=== PATIENT | male | born 1940 | race Caucasian/White ===

== ENCOUNTER 2016-04-20 14:59 | Outpatient (CLI) | payer MEDICARE, OTHER ==
[~2016-04-20] VITALS: Ht 185.4 cm; Wt 85.0 kg
--- NOTE | ~2016-04-20 | HEMODYNAMI ---
PATIENT:KATHIE KAPOOR MEDICAL RECORD: [id number] : 38 [id number] ADMISSION DATE: 04/20/16 Generatedon:04/21/201610:11 Patient name: KATHIE KAPOOR Patient #: [id number] SSN: DO B: 1940 Date of study: 04/21/2016 Page: Of Hemodynamic Procedure Report Patient Data Patient Demographics Procedure consent was obtained First Name: KATHIE Gender: Male Last Name: EMELIA : 1940 [facility] Initial: KEMI Age: 75 year(s) Patient #: [id number] Race: Unknown Additional ID: [id number] Contact details [address]: [address] [place] [address] State: [place] City: [place] Zip code: [address] Past Medical History Allergies Allergen Reaction Date Comments Reported Penicillins 04/21/2016 Admission Admission Data Admission Date: 04/20/2016 Admission Time: 17:25 Admit Source: Emergency Insurance Payor: Medicare, department Private health insurance Room #: D.2124 Weight (lbs.): 187.39 Weight (kg.): 85 Lab Results Lab Result Date: 04/21/2016 Lab Result Time: 0:00 Biochemistry Name Units Result Min Max BUN mg/dl 18 --(---*)-- 7 18 Creatinine mg/dl 1.1 --(--*-)-- 0.6 1.3 CBC Name Units Result Min Max Hemoglobin g/dl 11.6 *-(----)-- 13.5 17.5 Procedure Procedure Types Cath Procedure Diagnostic Procedure LHC LHC w/Coronaries PCI Procedure Coronary Stent Initial Miscellaneous Procedures Moderate Sedation up to 45 minutes Procedure Description Procedure Date Procedure Date: 04/21/2016 Procedure Start Time: 9:26 Procedure End Time: 9:51 Procedure Staff Name Function George Macedo RT Scrub Kinsey Silvestre RN Nurse Ever Gama MD Performing Physician Osvaldo Nielsen RT Monitor Procedure Data Cath Procedure Fluoroscopy Diagnostic fluoroscopy Total fluoroscopy Time: 5.9 time: 5.9 min min Diagnostic fluoroscopy Total fluoroscopy dose: 989 dose: 989 mGy mGy Contrast Material Contrast Material Type Amount (ml) Isovue 300 159 Entry Location Entry Primary Successful Side Size Upsize 1 Upsize Entry Closure Chung ccessful Closure Location (Fr) (Fr) 2 (Fr) Remarks Device Remarks Femoral Right 5 Fr 6 Fr 6 Fr Exoseal artery Mid-Length Short Diagnostic catheters Device Type Used For End Catheter Placement Cordis 5Fr JL 4.0 Procedure Catheter (MP) Cordis 5Fr 3DRC Catheter Procedure (MP) Cordis 5Fr Pigtail Procedure Catheter (MP) Procedure Complications No complications Procedure Medications Medication Administration Route Dosage Oxygen NC 2 l/min Benadryl I.V. 50 mg Lidocaine 2% added to field 20 Heparin Flush Bag added to field 2 bags (1000units/500ml NS) 0.9% NaCl I.V. 100 ml/hr Versed I.V. 1 mg Fentanyl I.V. 50 mcg Versed I.V. 1 mg Fentanyl I.V. 50 mcg Fentanyl I.V. 25 mcg Heparin Bolus I.V. 8500 units Plavix P.O. 600 mg Hemodynamics Rest HGB: 11.6 (g/dl) Heart Rate: 107 (bpm) Pressure Samples Time Site Value (mmHg) Purpose Heart Use Rate(bpm) 9:36 LV 151/16,25 Snapshot 110 9:37 LV 150/20,23 Snapshot 104 9:37 LV 144/13,19 Snapshot 101 9:37 AO 151/97(124) Pullback 106 Gradients Valve Time Site Site 2 Mean SEP/DFP Peak To Heart Use 1 (mmHg) (sec/min) Peak Rate (mmHg) (bpm) Aortic 9:37 LV AO 5 5 106 151/97(124) Calculations Valve P-P Mean Valve Index Valve Source Name Gradient Area Flow (cm2) Aortic 5 5 Snapshots Pre Cath Intra NCS Post Cath Vital Signs Time Heart Resp SPO2 NIBP (mmHg) Rhythm Pain Sedation Rate (ipm) (%) Status Level (bpm) 9:10:05 101 25 97 147/117(138) A-Fib 0 (11) 10(A) , No pain 9:14:21 102 16 98 147/116(133) A-Fib 0 (11) 10(A) , No pain 9:18:35 93 26 98 130/101(118) A-Fib 0 (11) 10(A) , No pain 9:22:42 97 22 98 140/111(132) A-Fib 0 (11) 10(A) , No pain 9:26:48 103 15 97 130/100(118) A-Fib 0 (11) 9(A) , No pain 9:30:56 104 16 95 134/107(133) A-Fib 0 (11) 9(A) , No pain 9:35:06 104 15 96 146/107(143) A-Fib 0 (11) 9(A) , No pain 9:39:22 103 17 96 138/109(123) A-Fib 0 (11) 9(A) , No pain 9:43:34 106 18 92 137/111(118) A-Fib 0 (11) 9(A) , No pain 9:47:44 113 16 92 138/104(129) A-Fib 0 (11) 10(A) , No pain 9:51:56 115 19 94 128/98(119) A-Fib 0 (11) 10(A) , No pain Medications Time Medication Route Dose Verified Delivered Reason Notes Effectiveness by by 9:09:14 Oxygen NC 2 Ever Buffie used for l/min Catarino Silvestre RN procedure 9:12:24 Benadryl I.V. 50 mg Ever Buffie used for Catarino Silvestre RN procedure 9:21:38 Lidocaine 2% added 20ml Ever Buffie used for to vial Catarino Silvestre RN procedure field 9:21:46 Heparin Flush added 2 Ever Buffie used for Bag to bags Catarino Silvestre RN procedure (1000units/500ml field NS) 9:22:00 0.9% NaCl I.V. 100 Ever Buffie Per physician ml/hr Catarino Silvestre RN 9:22:44 Versed I.V. 1 mg Ever Buffie for sedation Catarino Silvestre RN 9:22:49 Fentanyl I.V. 50 Ever Buffie for sedation mcg Catarino Silvestre RN 9:29:52 Versed I.V. 1 mg Ever Buffie for sedation Catarino Silvestre RN 9:29:56 Fentanyl I.V. 50 Ever Buffie for sedation mcg Catarino Silvestre RN 9:36:03 Fentanyl I.V. 25 Ever Buffie for sedation mcg Catarino Silvestre RN 9:41:50 Heparin Bolus I.V. 8,500 Ever Euceda for verifie d units Catarino Silvestre RN anticoagulation with dr gama 9:55:51 Plavix P.O. 600 Ever Euceda for mg Catarino Silvestre RN antiplatelet therapy Procedure Log Time Note 8:33:51 Admit Source: Emergency department 8:34:12 ACC Patient presents with Unstable Angina CCS Anginal Class 3--Marked limitation of physical activity, angina occurs with ordinary activity.. 8:34:15 Diagnostic Cath status Urgent 8:34:17 George Chungit RT(R) sent for patient. Start room use. 8:34:25 Time tracking: Regular hours 8:34:30 Plan of Care:Hemodynamics will remain stable., Cardiac rhythm will remain stable., Comfort level will be maintained., Respiratory function will remain adequate., Patient/ family verbilizes understanding of procedure., Procedure tolerated without complication., Recovers from procedure without complications.. 8:42:04 Lab Result : Hemoglobin 11.6 g/dl 8:42:04 Lab Result : Creatinine 1.1 mg/dl 8:42:04 Lab Result : BUN 18 mg/dl 8:42:27 Patient allergic to Penicillins 9:00:54 Patient received from PCU to CCL 1 Alert and oriented. Tansferred to table in Supine position. 9:00:56 Correct patient and procedure confirmed by team. 9:00:56 Warm blankets applied, and preston hugger turned on for patient comfort. 9:00:57 Signed procedure consent form obtained from patient. 9:00:58 ECG and BP/O2 sat monitors applied to patient. 9:08:56 Vital chart was started 9:08:57 Full Disclosure recording started 9:09:14 Oxygen 2 l/min NC was given by Kinsey Silvestre RN; used for procedure; 9:12:24 Benadryl 50 mg I.V. was given by Kinsey Silvestre RN; used for procedure; 9:14:49 Baseline sample Acquired. 9:15:16 Rhythm: atrial fibrillation 9:15:31 H&P Date Dictated: 04/20/2016 Within 30 days and on chart.. 9:15:32 Pre-procedure instructions explained to patient. 9:15:33 Pre-op teaching completed and patient verbalized understanding. 9:15:36 Family in patients room. 9:15:38 Patient NPO since Midnight. 9:15:40 Is the patient allergic to Iodine/contrast media? No. 9:15:46 Is patient on blood thinner?No 9:15:47 Patient diabetic? No. 9:15:50 Snore? Yes 9:15:50 Previous problem with sedation/anesthesia? No ? 9:15:51 Sleep apnea? No 9:15:52 Deviated septum? No 9:15:53 Opens mouth fully? Yes 9:15:54 Sticks out tongue? Yes 9:15:55 Airway obstruction? No ? 9:15:57 Dentures? No ? 9:16:02 Pre procedure: right dorsailis pedis pulse 1+ Palpable, but thready & weak; easily obliterated 9:16:05 Patient pain scale 0/10 ?. 9:16:10 IV patent on arrival in right forearm with 0.9% NaCl at KVO. 9:16:12 Lab results completed and on chart. 9:16:16 Right groin area was prepped with chlora-prep and draped in sterile fashion 9:16:17 Sharps counted by scrub and verified by R.N. 9:16:17 Alarms reviewed by R. N. 9:16:19 Use device set Femoral Dx 9:16:20 Tegaderm 4 x 4 opened to sterile field. 9:16:21 Acist Manifold opened to sterile field. 9:16:22 Acist Hand Control opened to sterile field. 9:16:23 Bag Decanter opened to sterile field. 9:16:23 Acist Syringe opened to sterile field. 9:16:24 St Gamaliel 260cm J .035 wire opened to sterile field. 9:16:24 Terumo 5Fr [place] Sheath opened to sterile field. 9:16:24 Medline Cath Pack opened to sterile field. 9:16:25 Diagnostic Infinity 5Fr Multipack catheter opened to sterile field. 9:16:32 Physician paged 9:16:33 Final Timeout: patient, procedure, and site verified with staff and physician. All members of the team are in agreement. 9:16:33 --------ALL STOP TIME OUT------ 9:16:35 Right groin site verified by team. 9:16:37 Physical assessment completed. ASA score P 2 - A patient with mild systemic disease as per Ever Gama MD. 9:16:42 Sedation plan: IV Moderate Sedation Versed, Fentanyl 9:17:09 Patient Weight : 187.39 lbs 9:17:33 Insurance Payor : Private health insurance, Medicare 9:21:38 Lidocaine 2% 20ml vial added to field was given by Kinsey Silvestre RN; used for procedure; 9:21:46 Heparin Flush Bag (1000units/500ml NS) 2 bags added to field was given by Kinsey Silvestre RN; used for procedure; 9:22:00 0.9% NaCl 100 ml/hr I.V. was given by Kinsey Silvestre RN; Per physician; 9::44 Versed 1 mg I.V. was given by Kinsey Silvestre RN; for sedation; 9::49 Fentanyl 50 mcg I.V. was given by Kinsey Silvestre RN; for sedation; 9:23:09 Zero performed for pressure channel P1 9:26:50 Procedure started. 9:26:52 Local anesthetic to right femoral artery with Lidocaine 2% by Ever Gama MD.INITIAL ACCESS ONLY 9:29:43 A 5 Fr sheath was inserted into the Right Femoral artery 9:29:52 Versed 1 mg I.V. was given by Kinsey Silvestre RN; for sedation; 9:29:56 Fentanyl 50 mcg I.V. was given by Kinsey Silvestre RN; for sedation; 9:31:37 A Cordis 5Fr JL 4.0 Catheter (MP) was advanced over the wire and used for Procedure. 9:32:20 LCA angiography performed. 9:33:18 Catheter exchanged over wire. 9:33:22 A Cordis 5Fr 3DRC Catheter (MP) was advanced over the wire and used for Procedure. 9:34:44 RCA angiography performed. 9:35:25 Catheter exchanged over wire. 9:35:39 Cordis 6FR XBLAD 4.0 guide catheter opened to sterile field. 9:35:40 Merit BasixCompak Inflation Kit opened to sterile field. 9:35:49 A Cordis 5Fr Pigtail Catheter (MP) was advanced over the wire and used for Procedure. 9:36:03 Fentanyl 25 mcg I.V. was given by Kinsey Silvestre RN; for sedation; 9:36:07 Terumo 6Fr [place] Sheath opened to sterile field. 9:36:14 Patterson BMW Clearfield 2 Straight 300cm 0.014 guide opened to sterile field. 9:36:30 LV hemodynamics recorded. 9:36:33 LV gram done using SANTO 9:36:35 Injector settings: Ml/sec: 10, Volume: 20, 9:37:20 EF : 50 % 9:37:37 Catheter removed. 9:38:20 Cordis 6Fr Brite Tip 35cm Sheath opened to sterile field. 9:38:26 Sheath upsized to a 6 Fr Mid-Length. 9:38:35 6 Fr xblad 4 guide catheter was inserted over the wire 9:38:38 bmw wire advanced. 9:38:39 Wire advanced across lesion. 9:39:19 High Pressure Extension Tubing (Catarino) opened to sterile field. 9:41:50 Heparin Bolus 8,500 units I.V. was given by Kinsey Silvestre RN; for anticoagulation; verified with dr gama 9:41:57 ACC PCI Site: mLAD has 80% stenosis. 9:41:59 ACC Pre-intervention MIRTHA Flow is 3. 9:47:35 Inflation Number: 1 A Data Virtualitytronic Integrity 3.5 X 22 stent was prepped and advanced across the Mid LAD. The stent was deployed at 14 GIOVANY for 0:10 (min:sec). 9:47:57 ACC Post-intervention MIRTHA Flow is 3. 9:48:01 Stent catheter was removed intact over wire. 9:48:12 Guide catheter removed. 9:48:12 Wire removed. 9:48:21 Cordis 6Fr Exoseal opened to sterile field. 9:48:34 Sheath upsized to a 6 Fr Short. 9:48:46 Sheath removed intact; hemostasis achieved with Exoseal to the Right Femoral artery. 9:48:48 Procedure ended.(Physican Out) 9:48:58 Fluoroscopy time 05.90 minutes. 9:49:02 Fluoroscopy dose: 989 mGy 9:49:02 Flurop Dose total: 989 9:49:13 Contrast amount:Isovue 300 159ml. 9:49:14 Sharps counted by scrub and verified by R.N. 9:49:16 Insertion/operative site no bleeding no hematoma. 9:49:19 Post-op/insertion site Right Femoral artery dressed using a 4 x 4 and Tegaderm. 9:49:22 Post right femoral artery:stable, soft, clean and dry 9:49:24 Post Procedure Pulses reassessed and unchanged 9:49:26 Post-procedure physical assessment completed. ASA score P 2 - A patient with mild systemic disease as per Ever Gama MD. 9:49:28 Post procedure rhythm: unchanged. 9:49:30 Patient needs reinforcement of post procedure teaching. 9:49:30 Post procedure instruction explained to patient.Patient verbalizes understanding. 9:49:58 Procedure type changed to Cath procedure, Diagnostic procedure, LHC, LHC w/Coronaries, PCI procedure, Coronary Stent Initial, Miscellaneous Procedures, Moderate Sedation up to 45 minutes 9:51:08 Procedure and supply charges have been captured, reviewed, submitted and are correct. 9:51:16 Procedure Complication : No complications 9:51:18 See physician's report for complete and final results. 9:51:18 Vital chart was stopped 9:51:20 Report given to PCU. 9:51:28 Patient transfered to PCU with Stretcher. 9:51:30 Full Disclosure recording stopped 9:51:30 Procedure ended. 9:51:50 ACC-PCI Only Patient was given prescriptions, or instructed by Ever Gama MD to start/continue the following medications upon discharge: Plavix 9:51:52 End room use (Document Last) 9:55:51 Plavix 600 mg P.O. was given by Kinsey Silvestre RN; for antiplatelet therapy; 10:10:02 St Gamaliel Femstop Arch Gold opened to sterile field. 10:10:30 Femstop placed over the right femoral artery at 150 mmHg. Hemostasis achieved. Intervention Summary Intervention Notes Time ActionType Lesion and Equipment Action# Pressure Duration Attributes Used 9:47:35 Place stent Mid LAD Medtronic 1 14 00:10 Integrity 3.5 X 22 stent Device Usage Item Name Manufacture Quantity Catalog Hospital Part Current Minimal L ot# / Number Charge Number Stock Stock Serial# Code Tegaderm 4 1 [id number] 269400 018663 5 x 4 Acist Acist 1 30104 024977 241908 537701 5 Phase Holographic Imaging Acist Hand Acist 1 02721 521667 056334 947206 5 PingSome Acist Acist 1 61681 008012 375582 360721 20 Syringe Medical Systems Inc Bag Microtek 1 2002S 787243 61692 131873 5 Decanter bideo.com Inc. Medline Cardinal 1 [id number] 855432 16574 660176 5 Cath Pack Health Terumo 5Fr Terumo 1 [id number] 762392 083637 571847 [address] Gamaliel 1 688869 335643 021990 068062 30 260cm J .035 wire Diagnostic Cardinal 1 [id number] 330476 30219 098416 30 Infinity Health 5Fr Multipack catheter Cordis 5Fr Cardinal 1 431297 5 JL 4.0 Health Catheter (MP) Cordis 5Fr Cardinal 1 473766 5 3DRC Health Catheter (MP) Cordis 6FR Cardinal 1 [id number] 827815 358391 516730 3 XBLAD 4.0 Health guide catheter Merit Merit 1 BN4276 100132 943360 005976 15 BasixCompak Medical Inflation Kit Cordis 5Fr Cardinal 1 214580 5 Pigtail Health Catheter (MP) Terumo 6Fr Terumo 1 OTX107 725747 805786 950955 40 [place] Sheath Cordis 6Fr Cardinal 1 [id number] 305310 989944 363294 1 Brite Tip Health 35cm Sheath High Merit 1 [id number] 547620 83630 773184 10 Pressure Medical Extension Tubing (Gama) Patterson BMW Patterson 1 8853110 109001 504294 860983 5 Clearfield 2 Vascular Straight 300cm 0.014 guide Medtronic Medtronic 1 [id number] 221000 905842 1 0 [id number] Integrity 3.5 X 22 stent Cordis 6Fr Cardinal 1 EX600 872628 637802 797518 [address] St Gamaliel 1 U88871 928397 758825 739754 5 Femstop Arch Gold Signature Audit Kennard Stage Time Signature Unsigned Intra-Procedure 04/21/2016 Osvaldo Nielsen RT(R) 9:56:24 AM RT(R) 04/21/2016 10:09:51 AM Intra-Procedure 04/21/2016 Osvaldo Nielsen 10:11:28 AM RT(R) Signatures Monitor : Osvaldo Nielsen RT Signature : Date : Time : [address] [place] [address]
[~2016-04-20 14:59] MED LIST: AVODART0.5 MG PO; EXELON1 PATCH .2; FLOMAX0.4 MG PO; FLUTICASONE PRO16 GM NASAL; LEXAPRO20 MG PO; MULTIPLE VITAMI1 TA1 PO; PRINIVIL20 MG PO; RESTORIL15 MG PO; SANDOSTATI500 MCG/ML INJ; VIAGRA100 MG PO; ZOFRAN4 MG PO
[2016-04-20 15:36] LABS: BASOPHILS 2.1 % (0.0-2.0); EOSINOPHILS 7.5 % (0-7); HEMATOCRIT 35.4 % (42.0-54.0); HEMOGLOBIN 11.6 g/dL (13.5-17.5); IMMATURE GRANULOCYTES 0.3 % (0-5); MCH 33.3 pg (26.0-34.0); MCHC 32.8 g/dL (31.0-37.0); MCV 101.7 fL (80.0-100.0); MEAN PLATELET VOLUME 12.2 fL (7.4-10.4); MONOCYTES 9.3 % (2-11); NEUTROPHILS 65.8 % (40-80); RBC 3.48 10x6/uL (4.20-6.10); WBC 7.1 10x3/uL (4.8-10.8)
[2016-04-20 15:44] LABS: PLATELET COUNT 266 10x3/uL (130-400)
[2016-04-20 15:49] LABS: ALBUMIN 3.8 g/dL (3.4-5.0); ALKALINE PHOSPHATASE 63 U/L (46-116); ALT (SGPT) 25 U/L (10-68); BILIRUBIN - TOTAL 0.68 mg/dL (0.2-1.3); CALC OSMOLALITY 281 mosm/kg (275-300); CALCIUM 8.6 mg/dL (8.5-10.1); CHLORIDE - SERUM 103 mmol/L (98-107); CREATININE - SERUM 1.1 mg/dL (0.6-1.3); GLUCOSE 82 mg/dL (74-106); POTASSIUM - SERUM 4.3 mmol/L (3.5-5.1); PROTEIN - SERUM 7.5 g/dL (6.4-8.2); SODIUM 141 mmol/L (136-145); UREA NITROGEN 18 mg/dL (7-18); eGFR NON AFRICAN AMERICAN 69 mL/min (90-120)
[2016-04-20 15:59] LABS: CHOL - HDL RATIO 2.8 ratio (2.3-4.9); CHOLESTEROL, TOTAL 91 mg/dL (0-200); CKMB 2.4 U/L (0.0-3.6); CREATINE KINASE 116 UL (21-232); HDL CHOLESTEROL 32 mg/dL (32-96); LDL CHOLESTEROL 45 mg/dL (0-100); LDL-HDL RATIO 1.4 ratio (1.5-3.5); TRIGLYCERIDE 72 mg/dL (30-200)
[2016-04-20 16:00] LABS: TROPONIN-I < 0.017 ng/mL (0.000-0.060)
[2016-04-20] MEDS ORDERED: XARELTO10 MG PO (18:17)
[2016-04-20] MEDS ORDERED: BETAPACE 80 MG80 MG PO (18:17)
[2016-04-20] MEDS ORDERED: ATIVAN1 MG PO (18:17)
[2016-04-20] MEDS ORDERED: NAMENDA XR28 MG PO (18:20)
--- NOTE | 2016-04-20 18:21 | NUR ---
PT ARRIVED TO FLOOR AND WAS ORIENTED TO ROOM AND FLOOR. HISTORY AND QUICK START COMPLETED. MED REC MOST ACCURATE PER . PT RESTING SITTING UP IN BED. DENIES ANY CURRENT PAIN OR NEEDS. CL IN REACH. WILL CPOC.
--- NOTE | 2016-04-20 20:30 | NUR ---
SPOUSE AT [facility], STATES " I HAVE ALREADY GIVEN MY ALL HIS PM MEDICATIONS". EXPLAINED TO SPOUSE THAT WE DID NOT HAVE AN ORDER FOR THE MEDICATIONS SHE IS GIVING HER SPOUSE AND THAT IT IS [facility] POLICY TO NOT ALLOW PATIENTS TO SELF MEDICATE UNLESS ORDERED BY A PHYSICIAN. PT HAS LOPRESSOR 25 MG ORDERED FOR 2100 TONIGHT. SPOUSE STATES PT IS NOT ON METOPROLOL AND THAT HE JUST RECEIVED HIS SOTALOL, LISINOPRIL, NAMENDA AND SEVERAL OTHER MEDICATIONS. METOPROLOL HELD AT THIS TIME FOR SAFETY - UNKNOWN WHAT PT HAS RECEIVED TONIGHT. PT'S SPOUSE REQUESTS THAT WE CALL HIS PHYSICIAN FOR ORDERS FOR PT'S EYE DROPS AND PT'S TEMAZEPAM. AWAITING RETURN CALL NOW. WILL MONITOR.
--- NOTE | 2016-04-20 22:30 | NUR ---
PT RESTING SOUNDLY WITHOUT C/O OR DISTRESS NOTED. WILL CONT TO MONITOR.
--- NOTE | 2016-04-20 23:58 | NUR ---
NO CHANGES NOTED IN ASSESSMENT. NO NEEDS VOICED. CALL LIGHT WITHIN REACH. WILL CONT TO MONITOR.
[2016-04-21] VITALS (9 sets, daily range): BP systolic 131–159; BP diastolic 79–104; Ht 185.4 cm; Wt 85.0 kg
--- NOTE | 2016-04-21 07:57 | NUR ---
ASSESSMENT COMPLETED. DENIES ANY NEEDS. TELEMERTY SHOWS AFIB. RAC SL. DENIES ANY NEEDS. CALL LIGHT IN REACH WITH SR UP. WILL MONITOR
--- NOTE | 2016-04-21 08:56 | NUR ---
ATTEMPTED TO SITE IV FOR HEART CATH X 2 STICKS WITHOUT SUCCESS. PATIENT IS NPO AT PRESENT TIME. MARKETING INTELLIGENCE MANAGER HERE TO TAKE PATIENT AND SEE ABOUT STICKING. LOREN SITED IV TO RIGHT FA WITH 22 G X 1 STICK.
--- NOTE | 2016-04-21 10:28 | NUR ---
BACK FROM ANNUAL GREENHOUSE MANAGER. AROUSES EACHERELLELEY. V/S STABLE. RIGHT GROIN WITH FEM STOP IN TACT. NO BLEEDING NOTED. PPP. FAMILY AT BEDSIDE. WILL MONITOR, TELEMERTY SHOWS CAF 95
--- NOTE | 2016-04-21 15:29 | NUR ---
PT DISCHARGED. IV OUT WITH TIP INTACT. INSTRUCTIONS GIVEN TO PT AND . CATH SITE SOFT WITH DRSG DRY AND INTACT. TO PRIVATE CAR PER WHEEL CHAIR.
--- NOTE | 2016-05-15 08:17 | OP ---
PATIENT NAME: KATHIE KAPOOR MEDICAL RECORD: [id number] :38 LOCATION:D.CAT ADMISSION DATE: SURGEON: MAXWELL WITT M.D. DATE OF OPERATION: 04/21/2016 Catheterization Report PROCEDURES PERFORMED: 1. Selective coronary angiography. 2. Left heart catheterization with ventriculogram. 3. PTCA and stent placed to the LAD. INDICATION: A 75-year-old gentleman with history of atrial fibrillation presents with unstable angina. EQUIPMENT USED: Diagnostic 5-Lebanese JL4, Tashi right, pigtail catheter. INTERVENTION: A 6-Lebanese XB LAD guide 4.0, BMW guide wire, 3.5 x 22 mm Integrity stent. TECHNIQUE: A 5-Lebanese sheath was inserted in retrograde fashion in the right common femoral artery. Next, selective coronary angiography was performed in standard 5-Lebanese JL4 and Tashi right. Left heart catheterization was performed using pigtail catheter. CORONARY ANATOMY: 1. Left main: Left main trunk is moderate in caliber. It gives rise to the LAD and circumflex. It has no obstruction. 2. LAD: This is a large caliber vessel extending to the apex. The proximal vessel demonstrates an 80% stenosis with a ruptured plaque. 3. Circumflex: This vessel is large in caliber and dominant. It has mild irregularities throughout its course, but nothing worse than 20%. 4. Right coronary artery: This vessel is small in caliber and nondominant. It is diffusely diseased, but nothing worse than 30%. 5. Left ventricle: Left ventricle is normal in size. No wall motion abnormalities are noted. Estimated ejection was 50%. DESCRIPTION OF INTERVENTION: A 6-Lebanese sheath was inserted in retrograde fashion in the right common femoral artery. Next, ____ units per kilogram of heparin was infused. A 6-Lebanese XB LAD guide was advanced and engaged in the left main coronary artery. Next, 100 units per kilogram of heparin was infused. A BMW guide wire was then placed into the distal LAD. A 3.5 x 22 mm Integrity stent was placed across this ruptured plaque and stenosis. The stent was then deployed at 14 atmospheres. Injection shows stent to be widely patent with 0% residual stenosis. There is marked improvement in distal flow. At this point, the wire and guide were removed. IMPRESSION: Successful percutaneous transluminal coronary angioplasty and stenting, the LAD with 0% residual stenosis. TRANSINT:[id number] Voice Confirmation ID: [id number] DOCUMENT ID: [id number] OPERATIVE REPORT [id number] KATHIE KAPOOR,MAXWELL Webb M.D. at 0817 CC: [id number] DICTATION DATE: 04/21/16 0956 CONTROLLER MECHANIC: 04/21/16 1148 DEP CLI 04/21/16 [place] [id number]
== END 2016-04-21 15:37 | disposition home or self-care (01) ==
LOC: OBSVTIME → D.CATH 14:59 → D.ER 14:59 → D.M2 16:57 → OBSVTIME 17:25 → D.ER 17:25 → D.M2 17:25 → D.CATH 04-21 15:37
PROVIDERS: Emergency Medicine
DX: I25.110 Atherosclerotic heart disease of native coronary artery with unstable angina pectoris (principal); I10 Essential (primary) hypertension; I48.91 Unspecified atrial fibrillation; Z79.01 Long term (current) use of anticoagulants; G30.9 Alzheimer's disease, unspecified; F02.80 Dementia in other diseases classified elsewhere, unspecified severity, without behavioral disturbance, psychotic disturbance, mood disturbance, and anxiety

== ENCOUNTER 2017-07-12 01:45 | Inpatient (IN) | payer MEDICARE, OTHER ==
[~2017-07-12] VITALS: Ht 185.4 cm; Wt 87.1 kg
--- NOTE | ~2017-07-12 | PN ---
PATIENT:KATHIE KAPOOR MEDICAL RECORD: [id number] LOCATION:[facility] ADMISSION DATE: 07/12/17 PROGRESS NOTE DATE OF SERVICE: 07/19/2017 SUBJECTIVE: No new complaint. OBJECTIVE: Staff has met with the patient's family. It appears that they may attempt to have him placed at [facility] if possible. The patient's valproic acid level was 23.9. However, dosage will not be changed at the moment as the patient has not shown any behavioral disturbance at all. On exam, mood is somewhat dysphoric. Affect is constricted. Speech shows some latency. Content of thought is negative for overt psychosis. Sensorium shows no change. ASSESSMENT: No change in diagnosis. PLAN: 1. Continue current medication. 2. Continue supportive therapy. TRANSINT:[id number] Voice Confirmation ID: [id number] DOCUMENT ID: [id number] VEENA COOK III, MD at 0530 CC: [id number] DICTATION DATE: 07/19/17 1158 RECREATION COUNSELOR: 07/19/17 1303 ADM IN [facility] [address] [id number]
--- NOTE | ~2017-07-12 | PN ---
PATIENT:KATHIE KAPOOR MEDICAL RECORD: [id number] LOCATION:[facility] ADMISSION DATE: 07/12/17 PROGRESS NOTE DATE OF SERVICE: 07/18/2017 SUBJECTIVE: No new complaint. OBJECTIVE: Staff report the patient has been fairly cooperative. He is tolerating medications well to this point. Staff will be meeting with family later today to discuss aftercare plans. On exam, mood slightly irritable. Affect is overall constricted. Speech is terse. Content of thought focuses on somatic concerns. Sensorium shows no change. ASSESSMENT: No change in diagnosis. PLAN: 1. Maintain current medication. 2. Continue supportive therapy. TRANSINT:[id number] Voice Confirmation ID: [id number] DOCUMENT ID: [id number] VEENA COOK III, MD at 0933 CC: [id number] DICTATION DATE: 07/18/17 1218 CLIENT STRATEGIST: 07/18/17 1231 ADM IN [place] [id number] [place] [address]
--- NOTE | ~2017-07-12 | PN ---
PATIENT:KATHIE KAPOOR MEDICAL RECORD: [id number] LOCATION:[facility] ADMISSION DATE: 07/12/17 PROGRESS NOTE DATE OF SERVICE: 07/25/2017 SUBJECTIVE: The patient's case was discussed with staff. He has no new complaint. OBJECTIVE: The patient is in good behavioral control. He has no thoughts of harming himself or others. ASSESSMENT: No change in diagnoses. PLAN: The treatment team has recommended [facility] placement for him. His and family have discussed the situation and have decided against it. The patient needs supervision. The family says they are going to provide that to the . She wants him discharged today. He denies that he would seek to harm himself now and admits that he just says things that he "does not mean when he is upset." I am going to go ahead and discharge him today and follow up will be with [facility] and his primary care physician. TRANSINT:[id number] Voice Confirmation ID: [id number] DOCUMENT ID: [id number] ALEXANDRE LOONEY MD at 1159 CC: [id number] DICTATION DATE: 07/25/17 1305 CONTINUING EDUCATION DEAN: 07/25/17 1317 DIS IN 07/25/17 [address] [place] [address]
--- NOTE | ~2017-07-12 | PN ---
PATIENT:KATHIE KAPOOR MEDICAL RECORD: [id number] LOCATION:YVONNE Primitivo112 ADMISSION DATE: 07/12/17 PROGRESS NOTE DATE OF SERVICE: 07/16/2017 SUBJECTIVE: No new complaint. OBJECTIVE: The patient is socializing more. Staff report the patient's does want him to return home. On exam, mood is pleasant and euthymic. Affect is bland. Speech is somewhat terse. Content of thought is negative for overt psychosis. Sensorium shows no change. ASSESSMENT: No change in diagnosis. PLAN: 1. Continue current medication. 2. Continue supportive therapy. TRANSINT:[id number] Voice Confirmation ID: [id number] DOCUMENT ID: [id number] VEENA COOK III, MD at 1037 CC: [id number] DICTATION DATE: 07/16/17 1155 TRACK FITTER: 07/16/17 1506 ADM IN [facility] [address] [place] [id number]
--- NOTE | ~2017-07-12 | DS ---
PATIENT:KATHIE KAPOOR :36 MEDICAL RECORD: [id number] DISCHARGE SUMMARY ADMISSION DATE: 07/12/17 DISCHARGE DATE: 07/25/17 DATE OF ADMISSION: 07/12/2017 DATE OF DISCHARGE: 07/25/2017. HISTORY OF PRESENT ILLNESS: First senior living admission for this 76-year-old white male. He had been referred from [facility]. He had been making suicidal statements and had also been aggressive and threatening towards his . He has a previous history of Alzheimer dementia. For further details, please see previously dictated history. COURSE IN THE HOSPITAL: The patient was seen in consultation by Dr. Dan who noted the presence of hypertension, carcinoid syndrome, glaucoma, anemia, atrial fibrillation, and a previous history of back surgery. From a medication standpoint, it was elected to start the patient on trazodone 50 mg at bedtime because of insomnia. He was placed on Depakote DR 500 mg twice a day for control of his agitation. He was maintained on Seroquel, which he had been taking at the time of admission, but dosage was reduced to 100 mg b.i.d. He was also maintained on Namenda 10 mg b.i.d. for his dementing symptoms and Exelon 6 mg b.i.d. as well. The patient initially exhibited some drowsiness with medication changes, but this improved considerably as the hospitalization progressed. Initially, the family had stated that they wish to have the patient placed, but during the last week of hospitalization, the patient's behavior improved and the family elected to have him come home with frequent assistance from family members. During the hospitalization, the patient was given this [facility] Mental Status exam and scored a 19/30 which does indicate a significant level of dementia. By the time of discharge, the patient was felt to be stable enough to return to the home environment with round the clock supervision by family members. FINAL DIAGNOSES: AXIS I: Alzheimer dementia with behavioral disturbance, secondary depression -- improving. AXIS II: No diagnosis. AXIS III: Hypertension, carcinoid syndrome, chronic arrhythmias, history of cardiac catheterization in 2017, glaucoma, and allergic rhinitis. AXIS IV: Moderate. AXIS V: 42. PLAN: 1. The patient is discharged on current medication. 2. Follow up with primary care physician. TRANSINT:[id number] Voice Confirmation ID: [id number] DOCUMENT ID: [id number] DISCHARGE SUMMARY REPORT [id number] KATHIE KAPOOR III, VEENA Rivers MD at 1041 CC: [id number] DICTATION DATE: 08/05/17 1137 INCIDENT HANDLER: 08/06/17 1007 DIS IN 07/25/17 [place] [id number] [place] [id number]
--- NOTE | ~2017-07-12 | PN ---
PATIENT:KATHIE KAPOOR MEDICAL RECORD: [id number] LOCATION:YVONNE Langford113 ADMISSION DATE: 07/12/17 PROGRESS NOTE DATE OF SERVICE: 07/22/2017 SUBJECTIVE: No new complaint. OBJECTIVE: The patient scored 19 out of 30 on the [facility] Mental Status Exam. He is tolerating medications well and is interacting better. On exam, mood is for the most part euthymic. Affect is very constricted. Speech is fairly fluent. Content of thought is negative for overt suicidality. Sensorium shows no change. ASSESSMENT: No change in diagnoses. PLAN: 1. Maintain current medication. 2. Continue supportive therapy. TRANSINT:[id number] Voice Confirmation ID: [id number] DOCUMENT ID: [id number] VEENA COOK III, MD at 1048 CC: [id number] DICTATION DATE: 07/22/17 1159 SHOT EXAMINER: 07/22/17 1308 ADM IN [facility] [address] [place] [address]
--- NOTE | ~2017-07-12 | PSY ---
PATIENT NAME:KATHIE KAPOOR MEDICAL RECORD: [id number] : 36 LOCATION:ElizabethMarcialTOMMarlena Langford1127 ADMISSION DATE: 07/12/17 ACCOUNT: [id number] PSYCHIATRIC EVALUATION DATE OF EVALUATION: 07/12/17 IDENTIFYING DATA: This is the first group home admission for this 76-year-old white male. HISTORY OF PRESENT ILLNESS: This patient was referred from [facility]. The patient had been taken there because he had been making suicidal statements and also had been aggressive and threatening toward his . The patient has an established diagnosis of Alzheimer's dementia, but the date of onset is not clear. The patient was admitted to this hospital in 2017 for cardiac issues and no mention of dementia was made during that workup. Since admission, the patient has been fairly cooperative. It is of interest to note that the patient has already been started on medication for Alzheimer's dementia as well as significant doses of Seroquel. PAST MEDICAL HISTORY: Significant for carcinoid syndrome for which the patient has been followed by Dr. Davey Paul in the past. The patient has significant hearing impairment. The patient has an ongoing diagnosis of hypertension, glaucoma, anemia, atrial fibrillation, and allergic rhinitis. MEDICATION: At the time of admission included Lexapro, fluticasone, multivitamin, Xarelto, Cardizem, Seroquel, MiraLax, Namenda, Exelon, iron sulfate, Lasix, Xalatan eye drops, and Restoril for sleep. ALLERGIES: LISTED PENICILLINS. FAMILY HISTORY: Noncontributory. SOCIAL HISTORY: The patient denies substance abuse. He is a former dispatcher. He is . He has 2 children. MENTAL STATUS: On exam, the patient is fairly cooperative. He is significantly hard of hearing. Mood is somewhat anxious. Affect overall is constricted. Speech is somewhat disjointed. Content of thought is positive for recent suicidal ideation. On sensorium testing, the patient is oriented to person and the fact that he is in a hospital. He is not correctly oriented as to time. He has difficulty recalling events of the last several days and weeks. Insight appears to be quite limited. DIAGNOSTIC IMPRESSION: AXIS I: Alzheimer dementia with behavioral disturbance, secondary depression. AXIS II: No diagnosis. AXIS III: Hypertension, carcinoid syndrome, chronic arrhythmias, history of cardiac catheterization in 2017, glaucoma, allergic rhinitis. AXIS IV: Moderate. AXIS V: 38. PLAN: 1. The patient is admitted for further medical and psychiatric workup. 2. Medication adjustment is indicated. 3. Supportive therapy. 4. Coordinate with family regarding aftercare. TRANSINT:[id number] Voice Confirmation ID: [id number] DOCUMENT ID: [id number] VEENA COOK III, MD at 0959 CC: [id number] DICTATION DATE: 07/12/17 1027 PATIENT SERVICE ASSOCIATE: 07/12/17 1316 ADM IN [facility] [address] [place] [address]
--- NOTE | ~2017-07-12 | PN ---
PATIENT:KATHIE KAPOOR MEDICAL RECORD: [id number] LOCATION:YVONNE Langford112 ADMISSION DATE: 07/12/17 PROGRESS NOTE DATE OF SERVICE: 07/13/2017 SUBJECTIVE: The patient's case was discussed with staff. He has no new complaint. OBJECTIVE: The patient is in good behavioral control with poor insight about his condition. He is tolerating his medicines well. ASSESSMENT: No change in diagnoses. PLAN: Brief supportive and educational interventions were made. Long-term prognosis is guarded. TRANSINT:[id number] Voice Confirmation ID: [id number] DOCUMENT ID: [id number] ALEXANDRE LOONEY MD at 1341 CC: [id number] DICTATION DATE: 07/13/17 0934 STERILE PROCESS COORDINATOR: 07/13/17 1449 ADM IN [place] [address] [place] [address]
--- NOTE | ~2017-07-12 | PN ---
PATIENT:KATHIE KAPOOR MEDICAL RECORD: [id number] LOCATION:YVONNE Bruce ADMISSION DATE: 07/12/17 PROGRESS NOTE DATE OF SERVICE: 07/15/2017 SUBJECTIVE: No new complaint offered. OBJECTIVE: The patient has been placid and fairly cooperative with staff. He is taking his medications as prescribed. On exam, mood is euthymic. Affect is constricted. Speech is slow and deliberate. Content of thought is negative for overt psychosis. The patient is oriented to person, month and year, but not as to place. Remote recall appears to be intact. Intermediate and short-term recall continue to show severe deficits. ASSESSMENT: No change in diagnosis. PLAN: 1. Maintain current medication. 2. Continue supportive therapy. TRANSINT:[id number] Voice Confirmation ID: [id number] DOCUMENT ID: [id number] VEENA COOK III, MD at 1053 CC: [id number] DICTATION DATE: 07/15/17 1033 BOTTOM PRESSER: 07/15/17 1130 ADM IN [place] [id number] [place] [id number]
--- NOTE | ~2017-07-12 | PN ---
PATIENT:KATHIE KAPOOR MEDICAL RECORD: [id number] LOCATION:YVONNE Langford113 ADMISSION DATE: 07/12/17 PROGRESS NOTE DATE OF SERVICE: 07/23/2017 SUBJECTIVE: No new complaint. OBJECTIVE: The patient is tolerating medications well. He is cooperative with staff. He is participating in group activities to some degree. On exam, mood is for the most part euthymic. Affect is very constricted. Speech is terse. Content of thought is negative for suicidal ideation. Sensorium unchanged. ASSESSMENT: No change in diagnosis. PLAN: 1. Continue current medication. 2. Continue supportive therapy. TRANSINT:[id number] Voice Confirmation ID: [id number] DOCUMENT ID: [id number] VEENA COOK III, MD at 1048 CC: [id number] DICTATION DATE: 07/23/17 1210 CUSTOM BOW MAKER: 07/23/17 1221 ADM IN [place] [address] [place] [address]
--- NOTE | ~2017-07-12 | PN ---
PATIENT:KATHIE KAPOOR MEDICAL RECORD: [id number] LOCATION:YVONNE Bruce ADMISSION DATE: 07/12/17 PROGRESS NOTE DATE OF SERVICE: 07/17/2017 SUBJECTIVE: The patient complains of being sleepy. OBJECTIVE: The patient has been pleasant and compliant with staff throughout the day. He is taking his medications without objection. Neuropsychological testing has been ordered. On exam, mood is somewhat dour. Affect is constricted. Speech is rather terse. Content of thought is negative for overt psychosis. Sensorium shows no change. ASSESSMENT: No change in diagnosis. PLAN: 1. We will get neuropsychological testing within the next day or so. 2. Reduce trazodone to 50 mg at bedtime. 3. Valproic acid in blood level in the morning. TRANSINT:[id number] Voice Confirmation ID: [id number] DOCUMENT ID: [id number] EVENA COOK III, MD at 1857 CC: [id number] DICTATION DATE: 07/17/17 1143 RECORD CENTER COORDINATOR: 07/17/17 1311 ADM IN [facility] [address] [place] [id number]
--- NOTE | ~2017-07-12 | PN ---
PATIENT:KATHIE KAPOOR MEDICAL RECORD: [id number] LOCATION:ElizabethFOZIAMarlena Langford113 ADMISSION DATE: 07/12/17 PROGRESS NOTE DATE OF SERVICE: 07/24/2017 SUBJECTIVE: No new complaint. OBJECTIVE: The patient continues to participate well, but tends to be more reserved when family visits. On exam today, mood is euthymic. Affect is rather constricted. Speech somewhat terse, but otherwise fluent. Content of thought is negative for overt psychosis. Sensorium unchanged. ASSESSMENT: No change in diagnosis. PLAN: 1. Continue current medication. 2. Continue supportive therapy. TRANSINT:[id number] Voice Confirmation ID: [id number] DOCUMENT ID: [id number] VEENA COOK III, MD at 1014 CC: [id number] DICTATION DATE: 07/24/17 1147 LABORER AMMUNITION ASSEMBLY: 07/24/17 1235 DIS IN 07/25/17 [place] [id number] [place] [address]
[~2017-07-12 01:45] MED LIST changes: +ATIVAN1 MG PO; +BETAPACE 80 MG80 MG PO; +NAMENDA XR28 MG PO; +XARELTO10 MG PO
[2017-07-12] MEDS ORDERED: XARELTO15 MG PO (02:23)
[2017-07-12] MEDS ORDERED: ELOCON45 GM TOPICAL (02:25)
[2017-07-12] MEDS ORDERED: SEROQUEL100 MG PO ×2 (02:26→02:27)
[2017-07-12] MEDS ORDERED: CARDIZEM CD120 MG PO (02:26)
[2017-07-12] MEDS ORDERED: MIRALAX17 GM PO (02:29)
[2017-07-12] MEDS ORDERED: SEROQUEL200 MG PO (02:29)
[2017-07-12] MEDS ORDERED: NAMENDA10 MG PO (02:30)
[2017-07-12] MEDS ORDERED: RIVASTIGMINE6 MG PO (02:31)
[2017-07-12] MEDS ORDERED: FERROUS SULFAT325 MG PO (02:31)
[2017-07-12] MEDS ORDERED: FUROSEMIDE20 MG PO (02:32)
[2017-07-12] MEDS ORDERED: VITAMIN B COMPL1 TAB PO (02:33)
[2017-07-12] MEDS ORDERED: XALATAN 0.0052.5 ML EACH EYE (02:34)
[2017-07-12] MEDS ORDERED: SANDOSTATI500 MCG/ML IM (02:36)
[2017-07-12] MEDS ORDERED: RESTORIL15 MG PO (02:37)
[2017-07-12 04:13] VITALS: BP 141/94; BMI 25.3
[2017-07-12 06:20] LABS: BASOPHILS 2.7 % (0-2); EOSINOPHILS 6.1 % (0-7); HEMATOCRIT 34.9 % (42.0-54.0); HEMOGLOBIN 11.6 g/dL (13.5-17.5); LYMPHOCYTES 20.2 % (15-50); MCH 36.5 pg (26.0-34.0); MCHC 33.2 g/dL (31.0-37.0); MCV 109.7 fL (80.0-100.0); MEAN PLATELET VOLUME 11.7 fL (7.4-10.4); MONOCYTES 12.7 % (2-11); NEUTROPHILS 57.3 % (40-80); RBC 3.18 10x6/uL (4.20-6.10); WBC 5.3 10x3/uL (4.8-10.8)
[2017-07-12 06:32] LABS: PLATELET COUNT 204 10x3/uL (130-400)
[2017-07-12 06:47] LABS: ALBUMIN 3.5 g/dL (3.4-5.0); ANION GAP 11.3 mmol/L (8-16); BILIRUBIN - TOTAL 0.8 mg/dL (0.2-1.3); CALCIUM 8.7 mg/dL (8.5-10.1); CARBON DIOXIDE 31.3 mmol/L (21.0-32.0); CHOL - HDL RATIO 3.4 ratio (2.3-4.9); CREATININE - SERUM 1.2 mg/dL (0.6-1.3); POTASSIUM - SERUM 3.6 mmol/L (3.5-5.1); PROTEIN - SERUM 6.7 g/dL (6.4-8.2); THYROID STIMULATING HORMONE 0.85 uIU/mL (0.36-3.74)
[2017-07-12 10:04] VITALS: BP 130/76
[2017-07-12 10:33] VITALS: Ht 185.4 cm; Wt 87.1 kg
[2017-07-12 19:29] VITALS: BP 117/81
[2017-07-13 05:14] LABS: RAPID PLASMA REAGIN Non Reactive (Non Reactive)
[2017-07-13 08:17] LABS: FOLATE (FOLIC ACID) - SERUM >20.0 ng/mL (>3.0)
[2017-07-13 09:42] VITALS: BP 120/89
[2017-07-13 20:46] VITALS: BP 120/90
[2017-07-14 07:00] VITALS: BP 156/92
[2017-07-14 19:35] VITALS: BP 124/70
[2017-07-15 07:40] VITALS: BP 138/87
[2017-07-15 09:09] LABS: VITAMIN D 25 HYDROXY 31.3 ng/mL (30.0-100.0)
[2017-07-15 11:55] LABS: APPEARANCE CLEAR (CLEAR); BILIRUBIN NEGATIVE (NEGATIVE); COLOR YELLOW (YELLOW); GLUCOSE NEGATIVE (NEGATIVE); KETONE SMALL mg/dL (NEGATIVE); NITRITE NEGATIVE (NEGATIVE); PROTEIN NEGATIVE (NEGATIVE); SPECIFIC GRAVITY 1.015 (1.005-1.020); UROBILINOGEN NORMAL (NORMAL)
[2017-07-15 18:37] VITALS: BP 150/78
[2017-07-16 10:20] VITALS: BP 136/76
[2017-07-16 22:23] VITALS: BP 148/83
[2017-07-17 09:45] VITALS: BP 132/97
[2017-07-17 20:05] VITALS: BP 130/82
[2017-07-18 08:42] VITALS: BP 142/93
[2017-07-18 19:21] VITALS: BP 161/78
[2017-07-19 08:34] VITALS: BP 143/94
[2017-07-19 19:47] VITALS: BP 135/80
[2017-07-20 09:10] VITALS: BP 162/106
[2017-07-20 19:18] VITALS: BP 126/75
[2017-07-21 18:56] VITALS: BP 136/81
[2017-07-22 07:00] VITALS: BP 136/104
[2017-07-22 19:43] VITALS: BP 164/98
[2017-07-23 09:30] VITALS: BP 140/103
[2017-07-23 21:16] VITALS: BP 150/85
[2017-07-24 10:40] VITALS: BP 142/91
[2017-07-24 19:45] VITALS: BP 134/59
[2017-07-25 09:06] VITALS: BP 132/92
[2017-07-25] MEDS ORDERED: TRAZODONE HCL50 MG PO (13:06)
[2017-07-25] MEDS ORDERED: DEPAKOTE500 MG PO (13:06)
== END 2017-07-25 15:45 | disposition home or self-care (01) | DRG 57 ==
LOC: D.PSYCH 01:45
PROVIDERS: Psychiatry & Neurology Psychiatry
DX: G30.9 Alzheimer's disease, unspecified (principal); F02.81 Dementia in other diseases classified elsewhere, unspecified severity, with behavioral disturbance; R45.851 Suicidal ideations; E34.0 Carcinoid syndrome; F32.9 Major depressive disorder, single episode, unspecified; I10 Essential (primary) hypertension; I48.2 Chronic atrial fibrillation; H40.9 Unspecified glaucoma; J30.9 Allergic rhinitis, unspecified; D64.9 Anemia, unspecified; H91.90 Unspecified hearing loss, unspecified ear; Z87.891 Personal history of nicotine dependence

== ENCOUNTER → 2017-12-16 07:42 | Outpatient (CLI) | payer MEDICARE, OTHER ==
[2017-07-12 10:33] VITALS: BMI 25.3
[~2017-12-16 07:42] MED LIST changes: +CARDIZEM CD120 MG PO; +DEPAKOTE500 MG PO; +ELOCON45 GM TOPICAL; +FERROUS SULFAT325 MG PO; +FUROSEMIDE20 MG PO; +MIRALAX17 GM PO; +NAMENDA10 MG PO; +RIVASTIGMINE6 MG PO; +SANDOSTATI500 MCG/ML IM; +SEROQUEL100 MG PO; +SEROQUEL200 MG PO; +TRAZODONE HCL50 MG PO; +VITAMIN B COMPL1 TAB PO; +XALATAN 0.0052.5 ML EACH EYE; +XARELTO15 MG PO
== END | disposition home or self-care (01) ==
LOC: D.NM 11-25 08:00
DX: C7A.019 Malignant carcinoid tumor of the small intestine, unspecified portion (principal)

== ENCOUNTER 2018-05-29 15:55 | Inpatient (IN) | payer MEDICARE, OTHER ==
--- NOTE | ~2018-05-29 | PN ---
PATIENT:KATHIE KAPOOR MEDICAL RECORD: [id number] LOCATION:YVONNE Langford112 ADMISSION DATE: 05/29/18 PROGRESS NOTE DATE OF SERVICE: 06/09/2018 SUBJECTIVE: Mr. Kapoor is a 77-year-old male who came from his home secondary to increased confusion and aggression toward his . He, according to Dr. Fernando's notes, is soon to be transferred to [facility]. The patient, according to nursing reports, reports that he has been compliant, ambulatory. On interview, the patient was pleasant, cooperative, obviously superficial in his conversation. He did not know exactly where he was. He thought it was April of 2018. He was unaware of why he came to the hospital. OBJECTIVE: VITAL SIGNS: 97.3, 54, 18, 156/92, and 95%. He slept 8.25 hours and he is eating 100% of the meals. ASSESSMENT: Unchanged. PLAN: According to Dr. Fernando notes, transfer to [facility] is anticipated. Case discussed with nursing, chart review, and patient interviewed. TRANSINT:[id number] Voice Confirmation ID: [id number] DOCUMENT ID: [id number] NATTY HUGHES MD CC: [id number] DICTATION DATE: 06/09/18 1142 ASSISTED LIVING NURSING DIRECTOR: 06/09/18 1610 ADM IN [place] [id number] [place] [id number]
--- NOTE | ~2018-05-29 | DS ---
PATIENT:KATHIE KAPOOR :36 MEDICAL RECORD: [id number] DISCHARGE SUMMARY ADMISSION DATE: 05/29/18 DISCHARGE DATE: 06/12/18 IDENTIFYING DATA: The patient is 77 years old and he is admitted to the hospital on a voluntary basis because of aggression. The patient lives with his and has been aggressive with her. He has a pretty advanced dementia and does not have any recollection of this, but when questioned denies that he would seek to harm himself or others. HOSPITAL COURSE: The patient was admitted to the hospital and fully evaluated from both a medical, psychological, and social standpoint. He was treated with both mood stabilizing and memory enhancing medications. He showed improvement in his behaviors and was subsequently transitioned to a setting where he could receive 24-hour a day care. DISCHARGE DIAGNOSES: AXIS I: Senile dementia of the Alzheimer's type with behavioral disturbances. AXIS II: None. AXIS III: Hypertension, carotid syndrome, chronic arrhythmia, and glaucoma. AXIS IV: Moderate. AXIS V: Global assessment of functioning 45. PLAN: At the time of discharge, the patient was not acutely dangerous to himself or others. He had not been aggressive and had no thoughts of being aggressive. He was tolerating his medications well. Followup is to be with his primary care physician. His long-term prognosis is guarded. Both supportive and educational interventions were made. TRANSINT:[id number] Voice Confirmation ID: [id number] DOCUMENT ID: [id number] ALEXANDRE LOONEY MD CC: [id number] DICTATION DATE: 06/16/18 145 PAINT FACTORY WORKER: 06/17/18 0200 DIS IN 06/12/18 [facility] [address] [place] [address]
[2018-05-29 16:40] LABS: APPEARANCE CLEAR (CLEAR); COLOR YELLOW (YELLOW)
[2018-05-29 16:41] LABS: BILIRUBIN NEGATIVE (NEGATIVE); GLUCOSE NEGATIVE (NEGATIVE); KETONE NEGATIVE (NEGATIVE); NITRITE NEGATIVE (NEGATIVE); PROTEIN NEGATIVE (NEGATIVE); UROBILINOGEN NORMAL (NORMAL)
[2018-05-29 16:46] LABS: UDS - AMPHET NEGATIVE QUAL (NEGATIVE); UDS - BARB NEGATIVE QUAL (NEGATIVE); UDS - BENZO NEGATIVE QUAL (NEGATIVE); UDS - COCAINE NEGATIVE QUAL (NEGATIVE); UDS - OPIATE NEGATIVE QUAL (NEGATIVE); UDS - PCP NEGATIVE QUAL (NEGATIVE); UDS - THC NEGATIVE QUAL (NEGATIVE)
[2018-05-29 16:56] LABS: HEMATOCRIT 33.2 % (42.0-54.0); HEMOGLOBIN 11.1 g/dL (13.5-17.5); MCH 36.4 pg (26.0-34.0); MCHC 33.4 g/dL (31.0-37.0); MCV 108.9 fL (80.0-100.0); MEAN PLATELET VOLUME 12.6 fL (7.4-10.4); PLATELET COUNT 233 10x3/uL (130-400); RBC 3.05 10x6/uL (4.20-6.10); RDW 17.3 % (11.5-14.5); WBC 3.7 10x3/uL (4.8-10.8)
[2018-05-29 17:10] LABS: APTT 34.1 SECONDS (22.8-39.4); INR 1.4 (0.85-1.17); PROTIME 16.6 SECONDS (11.6-15.0)
[2018-05-29 17:31] LABS: ALBUMIN 3.9 g/dL (3.4-5.0); ANION GAP 11.1 mmol/L (8-16); BILIRUBIN - TOTAL 0.58 mg/dL (0.2-1.3); CALCIUM 8.6 mg/dL (8.5-10.1); CARBON DIOXIDE 31.5 mmol/L (21.0-32.0); CREATININE - SERUM 1.3 mg/dL (0.6-1.3); POTASSIUM - SERUM 3.6 mmol/L (3.5-5.1); PROTEIN - SERUM 7.3 g/dL (6.4-8.2)
[2018-05-29 17:32] LABS: BASOPHILS 1 % (0-2); LYMPHOCYTES 16 % (15-50); MONOCYTES 1 % (2-11); NEUTROPHILS 82 % (40-80); PLATELET ESTIMATE NORMAL; TARGET CELLS OCC
[2018-05-29 17:33] LABS: ROULEAUX OCC
[2018-05-29 17:39] LABS: LDL-HDL RATIO 1.4 ratio (1.5-3.5); MAGNESIUM - SERUM 2.2 mg/dL (1.8-2.4); THYROID STIMULATING HORMONE 0.83 uIU/mL (0.36-3.74)
[2018-05-29] MEDS ORDERED: CARDIZEM CD180 MG PO (19:27)
[2018-05-29] MEDS ORDERED: LANOXIN125 MCG PO (19:28)
[2018-05-29 20:22] VITALS: BP 145/73
[2018-05-29 20:29] LABS: DIGOXIN 0.6 ng/mL (0.90-2.00); VALPROIC ACID (DEPAKOTE) 43.6 ug/mL (50.0-100.0)
[2018-05-29 22:24] VITALS: BP 145/94; BMI 24.4
[2018-05-30 08:59] VITALS: BP 135/82
[2018-05-30 14:50] VITALS: BMI 24.4
[2018-05-30 22:55] VITALS: BP 161/83
[2018-05-31 06:13] LABS: VITAMIN D 25 HYDROXY 34.5 ng/mL (30.0-100.0)
[2018-05-31 07:27] LABS: RAPID PLASMA REAGIN Non Reactive (Non Reactive)
[2018-05-31 08:00] VITALS: BP 159/101
[2018-05-31 08:14] LABS: FOLATE (FOLIC ACID) - SERUM >20.0 ng/mL (>3.0)
--- NOTE | 2018-05-31 11:00 | HP ---
PATIENT: KATHIE KAPOOR MEDICAL RECORD: [id number] ACCOUNT: [id number] LOCATION:YVONNE DMarcial1122 : 38 ADMISSION DATE: 05/29/18 PCP: LOIS CHRISTINA HISTORY AND PHYSICAL EXAMINATION IDENTIFYING DATA: The patient is 77 years old and he is admitted to the hospital on a voluntary basis. CHIEF COMPLAINT: Aggression. HISTORY OF PRESENT ILLNESS: The patient comes from home. Apparently lives with his and apparently he has been aggressive with her. I do not have details about the aggression and certainly is unable to give me any based upon the advanced dementia that he has, but it certainly it is clear from the interview that he is impaired. He denies that he would seek to harm himself or others. He denies psychotic symptoms. PAST MEDICAL HISTORY: Significant for some pretty significant hearing loss. 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 He has high blood pressure, congestive heart failure, atrial fibrillation, and angina. He has had multiple surgeries over the years, mostly orthopedic but there has been an intestinal resection done many years ago for reasons that are unclear. FAMILY HISTORY: Noncontributory. ALLERGIES: PENICILLIN. CURRENT MEDICATIONS: Include Depakote, trazodone, Lexapro, multivitamins, Flonase, Xarelto, Seroquel, Namenda, iron, Lasix, Digoxin, and Cardizem. SOCIAL HISTORY: The patient is a nonsmoker, nondrinker. He has been for many years. He has 2 adult children and is retired. MENTAL STATUS EXAMINATION: The patient is awake, alert and oriented to person and place, but not to time or situation. His mood is flat. His affect is constricted. Thought processes are circumstantial. Memory, concentration, and abstraction abilities are at least moderately impaired. He denies any active intent to harm himself or others as well as any overt psychotic symptoms. ASSETS: Supportive family members. LIABILITIES: Limited insight. DIAGNOSTIC IMPRESSION: AXIS I: Senile dementia of the Alzheimer's type with behavioral disturbances. AXIS II: None. AXIS III: Hypertension, carcinoid syndrome, chronic arrhythmias, and glaucoma. AXIS IV: Moderate. AXIS V: 40. PLAN: At this time, the patient is admitted to the hospital secondary to aggressive behavior associated with a dementing illness. He will be treated with both mood stabilizing and memory enhancing medications as deemed appropriate. His long-term prognosis is guarded. HISTORY AND PHYSICAL [id number] KATHIE KAPOOR TRANSINT:[id number] Voice Confirmation ID: [id number] DOCUMENT ID: [id number] ALEXANDRE LOONEY MD at 1100 CC: [id number] DICTATION DATE: 05/30/18 160 SECTION LABORER: 05/30/182128 ADM IN [place] [id number] [place] [id number]
[2018-06-01 00:35] VITALS: BP 150/70
[2018-06-01 07:00] VITALS: BP 159/94
--- NOTE | 2018-06-01 10:05 | PN ---
PATIENT:KATHIE KAPOOR MEDICAL RECORD: [id number] LOCATION:YVONNE Langford112 ADMISSION DATE: 05/29/18 PROGRESS NOTE DATE OF SERVICE: 05/31/2018 SUBJECTIVE: The patient's case was discussed with staff. He has no new complaint. OBJECTIVE: The patient is in good behavioral control with limited insight about his condition. He is tolerating his medications well. He is clearly quite confused, but has settled into the routine activities of the unit very well and I suspect that the agitation he was having at home was largely related to a lack of structure. TRANSINT:[id number] Voice Confirmation ID: [id number] DOCUMENT ID: [id number] ALEXANDRE LOONEY MD at 1005 CC: [id number] DICTATION DATE: 05/31/18 1149 JOINTER SUBMARINE CABLE: 05/31/18 1306 ADM IN [place] [id number] [place] [address]
[2018-06-01 20:22] VITALS: BP 145/92
[2018-06-02 07:00] VITALS: BP 150/88
--- NOTE | 2018-06-02 15:11 | PN ---
PATIENT:KATHIE KAPOOR MEDICAL RECORD: [id number] LOCATION:YVONNE Langford112 ADMISSION DATE: 05/29/18 PROGRESS NOTE DATE OF SERVICE: 06/01/2018 SUBJECTIVE: The patient's case was discussed with staff. He has no new complaint. OBJECTIVE: The patient is poorly oriented, but has a euthymic mood. ASSESSMENT: No change in diagnoses. PLAN: Current medicines have been reviewed and will be maintained. Long-term prognosis is guarded. TRANSINT:[id number] Voice Confirmation ID: [id number] DOCUMENT ID: [id number] ALEXANDRE LOONEY MD at 1511 CC: [id number] DICTATION DATE: 06/01/18 1122 WOOD POLE TREATER: 06/01/18 1830 ADM IN [place] [address] [place] [address]
[2018-06-02 20:32] VITALS: BP 156/82
[2018-06-02 22:00] LABS: APPEARANCE CLEAR (CLEAR); BILIRUBIN NEGATIVE (NEGATIVE); COLOR YELLOW (YELLOW); GLUCOSE NEGATIVE (NEGATIVE); KETONE NEGATIVE (NEGATIVE); NITRITE NEGATIVE (NEGATIVE); PROTEIN NEGATIVE (NEGATIVE); UROBILINOGEN NORMAL (NORMAL)
[2018-06-03 07:00] VITALS: BP 156/96
[2018-06-03 11:49] VITALS: BMI 23.4
--- NOTE | 2018-06-03 15:34 | PN ---
PATIENT:KATHIE KAPOOR MEDICAL RECORD: [id number] LOCATION:YVONNE Langford112 ADMISSION DATE: 05/29/18 PROGRESS NOTE DATE OF SERVICE: 06/02/2018 SUBJECTIVE: The patient's case was discussed with staff. He has no new complaint. OBJECTIVE: The patient has been reasonably calm and cooperative without any significant agitation. I think this is related to the structured environment in which he is currently finding himself and not really associated with a fundamental improvement in his overall condition. He is severely impaired cognitively. He has not been aggressive and he is tolerating his medicines well. ASSESSMENT: Senile dementia of the Alzheimer's type with behavioral disturbances. PLAN: The patient is going to need placement in a secure setting with 78-orrb-k-day assistance. He will be maintained on current medications, which have been reviewed. His long-term prognosis is guarded. TRANSINT:[id number] Voice Confirmation ID: [id number] DOCUMENT ID: [id number] ALEXANDRE LOONEY MD at 1534 CC: [id number] DICTATION DATE: 06/02/18 1528 LEGAL RECORDS CLERK: 06/02/18 1747 ADM IN [facility] [address] [place] [address]
[2018-06-03 19:45] VITALS: BP 125/74
--- NOTE | 2018-06-04 15:01 | PN ---
PATIENT:KATHIE KAPOOR MEDICAL RECORD: [id number] LOCATION:YVONNE Langford112 ADMISSION DATE: 05/29/18 PROGRESS NOTE DATE OF SERVICE: 06/03/2018 SUBJECTIVE: The patient's case was discussed with staff. He has no new complaint. OBJECTIVE: The patient denies intent to harm himself or others. He tolerates his medicines well. ASSESSMENT: Senile dementia of the Alzheimer's type with behavioral disturbances. PLAN: Brief supportive and educational interventions were made. Long-term prognosis is guarded. TRANSINT:[id number] Voice Confirmation ID: [id number] DOCUMENT ID: [id number] ALEXANDRE LOONEY MD at 1501 CC: [id number] DICTATION DATE: 06/03/18 1546 FISH AND GAME CLUB MANAGER: 06/03/18 1624 ADM IN [place] [address] [place] [address]
[2018-06-04 20:18] VITALS: BP 131/68
--- NOTE | 2018-06-05 08:28 | PN ---
PATIENT:KATHIE KAPOOR MEDICAL RECORD: [id number] LOCATION:YVONNE Langford112 ADMISSION DATE: 05/29/18 PROGRESS NOTE DATE OF SERVICE: 06/04/2018 SUBJECTIVE: The patient's case was discussed with staff. He has no new complaint. OBJECTIVE: The patient is tolerating his current medicines well. He has poor insight about his condition. He has not been aggressive today. ASSESSMENT: Senile dementia of the Alzheimer's type with behavioral disturbances. PLAN: Current medicines have been reviewed and will be maintained. His long-term prognosis is guarded. He has a subtherapeutic Depakote level that would not be consistent with the dose he is taking. I am unsure how to explain this since the records shows that he has been taking his medication. I will have another level checked in a day or two. He does appear to be responding to it well. I just do not believe his blood level is 15 when he is taking 1000 mg of the medication a day. That is not correct, and assuming there is no error in the lab, which almost never ever happens, I think that there may be some error in thinking he takes the medicine when perhaps he is spitting it out. TRANSINT:[id number] Voice Confirmation ID: [id number] DOCUMENT ID: [id number] ALEXANDRE LOONEY MD at 0828 CC: [id number] DICTATION DATE: 06/04/18 160 STOCK TURNER: 06/04/18 1614 ADM IN [facility] [address] [place] [address]
[2018-06-05 09:30] VITALS: BP 131/68
[2018-06-05 20:00] VITALS: BP 132/72
[2018-06-06 09:29] VITALS: BP 159/97
[2018-06-06 20:19] VITALS: BP 120/60
[2018-06-07 09:21] VITALS: BP 134/82
--- NOTE | 2018-06-07 12:33 | PN ---
PATIENT:KATHIE KAPOOR MEDICAL RECORD: [id number] LOCATION:YVONNE Langford112 ADMISSION DATE: 05/29/18 PROGRESS NOTE DATE OF SERVICE: 06/05/2018 SUBJECTIVE: The patient's case was discussed with staff. He has no new complaint. OBJECTIVE: The patient is in good behavioral control with limited insight about his condition. He has severe impairment of his short-term memory, but no active thoughts of harming himself or others. He has not been aggressive. ASSESSMENT: No change in diagnoses. PLAN: Current medicines will be maintained. His long-term prognosis is guarded. TRANSINT:[id number] Voice Confirmation ID: [id number] DOCUMENT ID: [id number] ALEXANDRE LOONEY MD at 1233 CC: [id number] DICTATION DATE: 06/05/18 1550 FINE GRADER: 06/05/18 1605 ADM IN [place] [id number] [place] [id number]
--- NOTE | 2018-06-07 12:33 | PN ---
PATIENT:KATHIE KAPOOR MEDICAL RECORD: [id number] LOCATION:YVONNE Bruce ADMISSION DATE: 05/29/18 PROGRESS NOTE DATE OF SERVICE: 06/06/2018 SUBJECTIVE: The patient's case was discussed with staff. He has no new complaint. OBJECTIVE: The patient is in good behavioral control. He is severely impaired cognitively. He has not been aggressive. ASSESSMENT: No change in diagnoses. PLAN: Supportive and educational interventions were made. Long-term prognosis is guarded. TRANSINT:[id number] Voice Confirmation ID: [id number] DOCUMENT ID: [id number] ALEXANDRE LOONEY MD at 1233 CC: [id number] DICTATION DATE: 06/06/18 170 NET LEAD DEVELOPER: 06/06/18 2337 ADM IN [place] [address] [place] [address]
[2018-06-07 21:47] VITALS: BP 135/82
[2018-06-08 07:00] VITALS: BP 163/88
--- NOTE | 2018-06-08 12:21 | PN ---
PATIENT:KATHIE KAPOOR MEDICAL RECORD: [id number] LOCATION:[facility] ADMISSION DATE: 05/29/18 PROGRESS NOTE DATE OF SERVICE: 06/07/2018 SUBJECTIVE: The patient's case was discussed with staff. He has no new complaint. OBJECTIVE: The patient is in good behavioral control. He has had no thoughts of harming himself or others and is not aggressive. ASSESSMENT: Senile dementia of the Alzheimer's type with behavioral disturbances. PLAN: I anticipate the patient can be transitioned out of the hospital after the weekend. I know he has been referred to a local jail. What I am not sure about right now is whether or not they have accepted him and the office of long-term care has cleared him for discharge. TRANSINT:[id number] Voice Confirmation ID: [id number] DOCUMENT ID: [id number] ALEXANDRE LOONEY MD at 1221 CC: [id number] DICTATION DATE: 06/07/18 1242 ACADEMIC DEAN: 06/07/182009 ADM IN [facility] [address] [place] [address]
[2018-06-08 21:03] VITALS: BP 141/81
[2018-06-09 07:00] VITALS: BP 156/92
[2018-06-09 20:30] VITALS: BP 138/86
[2018-06-10 08:00] VITALS: BP 164/97
[2018-06-10 19:32] VITALS: BP 141/85
[2018-06-11 08:00] VITALS: BP 154/73
--- NOTE | 2018-06-11 12:57 | PN ---
PATIENT:KATHIE KAPOOR MEDICAL RECORD: [id number] LOCATION:[facility] ADMISSION DATE: 05/29/18 PROGRESS NOTE DATE OF SERVICE: 06/10/2018 SUBJECTIVE: The patient's case was discussed with staff. He has no new complaint. OBJECTIVE: The patient is tolerating his current medicines well. He is only partially oriented. He has not been agitated. He has a Depakote level of 14 from the 8th of this month. I am going to recheck that level now. ASSESSMENT: No change in diagnoses. PLAN: Current medicines have been reviewed and will be maintained. Long-term prognosis is guarded. TRANSINT:[id number] Voice Confirmation ID: [id number] DOCUMENT ID: [id number] ALEXANDRE LOONEY MD at 1257 CC: [id number] DICTATION DATE: 06/10/18 1005 SENIOR GAMEMASTER: 06/10/18 1452 ADM IN [place] [id number] [place] [address]
--- NOTE | 2018-06-11 12:57 | PN ---
PATIENT:KATHIE KAPOOR MEDICAL RECORD: [id number] LOCATION:[facility] ADMISSION DATE: 05/29/18 PROGRESS NOTE DATE OF SERVICE: 06/08/2018 SUBJECTIVE: The patient's case was discussed with staff. He has no new complaint. OBJECTIVE: The patient denies intent to harm himself or others. He tolerates his medicines well. Eye contact is fair. ASSESSMENT: Senile dementia of the Alzheimer's type with behavioral disturbances. PLAN: The patient will be transitioned to the [facility] soon. I am not sure if he has been formally accepted, but will find out tomorrow when we have our team meeting. TRANSINT:[id number] Voice Confirmation ID: [id number] DOCUMENT ID: [id number] ALEXANDRE LOONEY MD at 1257 CC: [id number] DICTATION DATE: 06/08/18 1214 BASKET BRAIDER: 06/08/18 1355 ADM IN [place] [id number] [place] [address]
[2018-06-11] MEDS ORDERED: CARDIZEM CD240 MG PO (15:26)
[2018-06-11 20:00] VITALS: BP 135/77
--- NOTE | 2018-06-12 12:29 | PN ---
PATIENT:KATHIE KAPOOR MEDICAL RECORD: [id number] LOCATION:[facility] ADMISSION DATE: 05/29/18 PROGRESS NOTE DATE OF SERVICE: 06/11/2018 PSYCHIATRIC PROGRESS NOTE SUBJECTIVE: The patient's case was discussed with staff. He has no new complaint. OBJECTIVE: The patient is in good behavioral control with limited insight about his condition. He is tolerating his medications well. ASSESSMENT: No change in diagnoses. PLAN: The patient is going to be transitioned out of the hospital tomorrow. He will be going to a local [facility]. Follow up will be with the [facility] physician. TRANSINT:[id number] Voice Confirmation ID: [id number] DOCUMENT ID: [id number] ALEXANDRE LOONEY MD at 1229 CC: [id number] DICTATION DATE: 06/11/18 1525 HOTEL SUPPLIES SALESPERSON: 06/11/18 1708 ADM IN [facility] [address] [place] [address]
--- NOTE | 2018-06-13 13:58 | PN ---
PATIENT:KATHIE KAPOOR MEDICAL RECORD: [id number] LOCATION:[facility] ADMISSION DATE: 05/29/18 PROGRESS NOTE DATE OF SERVICE: 06/12/2018 SUBJECTIVE: The patient's case was discussed with staff. He has no new complaint. OBJECTIVE: The patient is poorly oriented, but in good behavioral control. His mood is flat, but he certainly does not have any thoughts of harming himself or others and is not showing any evidence of acute or direct dangerousness. ASSESSMENT: Senile dementia of the Alzheimer's type with behavioral disturbances. PLAN: The [facility]. His long-term prognosis is guarded. Supportive and educational interventions were made. TRANSINT:[id number] Voice Confirmation ID: [id number] DOCUMENT ID: [id number] ALEXANDRE LOONEY MD at 1358 CC: [id number] DICTATION DATE: 06/12/18 1259 PAPER STRIPPER: 06/12/18 1312 DIS IN 06/12/18 [place] [id number] [place] [address]
== END 2018-06-12 15:02 | DRG 57 ==
LOC: D.ER 15:55 → D.PSYCH 18:43
PROVIDERS: Emergency Medicine; ADMIT Psychiatry & Neurology Psychiatry
DX: G30.1 Alzheimer's disease with late onset (principal); F02.81 Dementia in other diseases classified elsewhere, unspecified severity, with behavioral disturbance; E34.0 Carcinoid syndrome; I10 Essential (primary) hypertension; H40.9 Unspecified glaucoma; F32.9 Major depressive disorder, single episode, unspecified; I48.2 Chronic atrial fibrillation; D64.9 Anemia, unspecified; H91.90 Unspecified hearing loss, unspecified ear; J30.9 Allergic rhinitis, unspecified; K59.09 Other constipation

== ENCOUNTER → 2018-07-07 08:27 | Outpatient (CLI) | payer MEDICARE, OTHER ==
[~2018-07-07 08:27] MED LIST changes: +CARDIZEM CD180 MG PO; +CARDIZEM CD240 MG PO; +LANOXIN125 MCG PO
== END | disposition home or self-care (01) ==
LOC: D.NM 08:27
PROVIDERS: ATTEND Legal Medicine
DX: C7A.019 Malignant carcinoid tumor of the small intestine, unspecified portion (principal)